=== PATIENT | female | born 1935 | race Caucasian/White ===

== ENCOUNTER 2018-10-18 21:38 | Inpatient (IN) | payer OTHER, MEDICARE ==
--- NOTE | 2018-10-18 21:43 | PDOC ---
History of Present Illness - General History Source: Patient Exam Limitations: No Limitations - History of Present Illness Initial Comments: 10/18/18 22:00 The patient is a 83 year old female, with a no significant PMH, who presents to the emergency department with back pain that began a few hours ago. The patient describes the pain as excruciating, constant and non radiating located to the upper back. She notes pain is exacerbated with movement and alleviated with rest. Per patient's daughter, patient took 3 Advils and 1 charcoal pill prior to arrival, mild relief. The patient denies chest pain, shortness of breath, headache and dizziness. Denies fever, chills, nausea, vomit, diarrhea and constipation. PAST MEDICAL HISTORY: no significant history PAST SURGICAL HISTORY: no significant history FAMILY HISTORY: no pertinent history SOCIAL HISTORY: Pt lives with family and is employed. MEDICATIONS: reviewed ALLERGIES: As per nursing notes Adult ROS General: No fevers or chills, no weakness, no weight loss HEENT: No change in vision. No sore throat,. No ear pain CardioVascular: No chest pain or shortness of breath Respiratory:No cough, or wheezing. Gastrointestinal: no nausea, vomiting, diarrhea or constipation, No rectal bleeding Genitourinary: No dysuria, hematuria, or frequency Musculoskeletal:+ Upper back pain. Neurologic: No headache, vertigo, dizziness or loss of consciousness Psychiatric: nor depression Skin: No rashes or easy bruising Endocrine: no increased thirst or abnormal weight change Allergic: no skin or latex allergy All other systems reviewed and normal Adult Exam: General: +Mild distress. Well-nourished well-developed individual. HEENT: Throat: Normal, tonsils normal, no erythema or exudate Neck: Supple, no meningeal signs, no lymphadenopathy Eyes::Pupils equal reactive and round, extraocular motion intact Chest: Nontender to palpation Cardiac: +Irregularly irregular rate and rhythm. Respiratory: Lungs clear to auscultation bilateral Abdomen: +Slightly distended soft, normal bowel sounds, nontender to palpation diffusely Extremities: Warm, dry, no cyanosis, clubbing, or edema Skin: No rashes Neuro: Alert and oriented x3, nonfocal exam, grossly intact, normal gait Psych: Normal mood and affect <Krista Lyn - Last Filed: 10/18/18 22:00> - General History Source: Patient Exam Limitations: No Limitations - History of Present Illness Initial Comments: A portion of this note was documented by scribe services under my direction. I have reviewed the details of the note, within reason, and agree with the documentation with the following case summary and management plan written by me. Patient treated in the ED. Nursing notes are reviewed and incorporated into the medical decision-making. Vital signs reviewed. Assessment and plan: This is a 83-year-old female who comes in with her daughter for evaluation of back pain primarily but also an epigastric chest pain component to it. Patient does admit to some shortness of breath and diaphoresis with it. Patient took Tums, charcoal pill and 3 Aleve and said pain is now better than it was earlier. Patient does have history of similar in the past without was relieved with antacids. Here in the emergency room patient was noted to have a irregular heartbeat and EKG showed atrial fibrillation at a rate of [address]-T wave changes. Patient's chest x-ray shows a questionable widened mediastinum versus perihilar infiltrate. Patient does have a 13.6 white count with a left shift, without a source however I have not also gotten a urine from her as she says she is not able to give one Patient's glucose is moderately elevated at 176 patient denies history of diabetes or prediabetes said had work blood work a couple weeks ago and everything was fine. Patient had a CT angio of the chest to rule out aortic dissection given her degree of back pain. Likewise wavered IS about 10 minutes and are supple give her 10 more minutes 10/19/18 01:19 CT angios of the chest was negative for any acute pathology. Patient will be admitted to a observation bed hospitalist service, <Tab Browne I - Last Filed: 10/19/18 01:22> - General Chief Complaint: Back Pain Stated Complaint: UPPER BACK PAIN Time Seen by Provider: 10/18/18 21:43 Past History <Krista Lyn - Last Filed: 10/18/18 22:00> - Suicide/Smoking/Psychosocial Hx Smoking History: Former smoker Have you smoked in the past 12 months: No <Tab Browne I - Last Filed: 10/19/18 01:22> - Past Medical History Allergies/Adverse Reactions: Allergies Allergy/AdvReac Type Severity Reaction Status Date / Time aspirin [From Percodan] Allergy Verified 10/18/18 21:46 oxycodone HCl [From Percodan] Allergy Verified 10/18/18 21:46 oxycodone terephthalate Allergy Verified 10/18/18 21:46 [From Percodan] Home Medications: Ambulatory Orders Charcoal 600 mg PO ONCE 10/18/18 Ibuprofen [Advil -] 600 mg PO ONCE 10/18/18 *Physical Exam - Vital Signs Last Vital Signs Temp Pulse Resp BP Pulse Ox 97.3 F L 60 18 155/100 99 10/18/18 21:40 10/18/18 21:40 10/18/18 21:40 10/18/18 21:40 10/18/18 21:40 <Krista Lyn - Last Filed: 10/18/18 22:00> Moderate Sedation - Procedure Monitoring Vital Signs: Procedure Monitoring Vital Signs Temperature 97.3 F L 10/18/18 21:40 Pulse Rate 60 10/18/18 21:40 Respiratory Rate 18 10/18/18 21:40 Blood Pressure 155/100 10/18/18 21:40 O2 Sat by Pulse Oximetry (%) 99 10/18/18 21:40 <Krista Lyn - Last Filed: 10/18/18 22:00> ED Treatment Course - LABORATORY CBC & Chemistry Diagram: 10/18/18 21:56 10/18/18 21:56 <Tab Browne I - Last Filed: 10/19/18 01:22> *DC/Admit/Observation/Transfer - Attestations Scribe Attestion: 10/18/18 22:01 Documentation prepared by Krista Lyn, acting as medical records coordinator for Tab Browne MD. <Krista Lyn - Last Filed: 10/18/18 22:00> - Discharge Dispostion Decision to Admit order: Yes <Tab Browne I - Last Filed: 10/19/18 01:22> Diagnosis at time of Disposition: New onset atrial fibrillation, Hyperglycemia, Chest pain Leukocytosis Qualifiers: Leukocytosis type: other Qualified Code(s): D72.828 - Other elevated white blood cell count - Discharge Dispostion Condition at time of disposition: Good - Referrals Referrals: Sheryl Perez MD [Primary Care Provider] - - Patient Instructions - Post Discharge Activity
[2018-10-18] MEDS ORDERED: FAMOTIDINE 20 MG/50 ML IVPB 20 MG/50 ML MG IVPB ONE ×2 (21:57→22:02)
[2018-10-18 21:58] VITALS: BMI 23.1
[2018-10-18 22:20] LABS: RDW 12.8 % (11.6-15.6)
[2018-10-18 22:25] LABS: BASO % 1.8 % (0-2.0); EOS % 1.4 % (0-4.5); HEMOGLOBIN 14.9 GM/dl (10.7-15.3); LYMPH % 8.6 % (8-40); MCH 29.1 pg (25.7-33.7); MEAN PLT VOLUME 9.1 fl (7.5-11.1); MONO % 3.4 % (3.8-10.2); NEUT % 84.8 % (42.8-82.8); PLATELET COUNT 351 K/MM3 (134-434); RBC 5.11 M/mm3 (3.60-5.2); WHITE BLOOD COUNT 16.3 K/mm3 (4.0-10.8)
[2018-10-18 22:31] LABS: ALBUMIN 3.8 g/dl (3.5-5.0); ALK PHOS 81 U/L (32-92); ANION GAP 12 MMOL/L (8-16); BILIRUBIN,TOTAL 0.6 mg/dl (0.2-1.0); BLOOD UREA NITROGEN 22 mg/dl (7-18); CALCIUM 9.8 mg/dl (8.4-10.2); CHLORIDE 102 mmol/L (98-107); CO2 26 mmol/L (22-28); CREATININE 1.1 mg/dl (0.6-1.3); GLUCOSE,RANDOM 176 mg/dl (74-106); POTASSIUM 4.1 mmol/L (3.5-5.1); SGOT/AST 25 U/L (10-42); SGPT/ALT 19 U/L (10-40); SODIUM 140 mmol/L (136-145); TOT PROT 6.6 g/dl (6.4-8.3)
[2018-10-18] MEDS ORDERED: SODIUM CHLORIDE 1,000 ML IV ONE (22:53)
[2018-10-19] MEDS ORDERED: dilTIAZem HCL 60 MG TABLET (FP) PO ONE ×2 (00:55→00:58)
[2018-10-19] MEDS ORDERED: dilTIAZem HCL 30 MG TABLET (FP) ONE (00:57)
[2018-10-19] MEDS ORDERED: KETOROLAC TROMETHAMINE 30 MG/1 ML VIAL ONE (01:40)
[2018-10-19] MEDS ORDERED: KETOROLAC TROMETHAMINE 30 MG/1 ML VIAL IVPUSH ONE (01:40)
[2018-10-19 02:23] LABS: URINE APPEARANCE CLEAR; URINE BILIRUBIN NEGATIVE (<2.0 mg/dL); URINE COLOR STRAW; URINE GLUCOSE (UA) NEGATIVE (NEGATIVE); URINE KETONE NEGATIVE (NEGATIVE); URINE LEUK ESTERASE NEGATIVE (NEGATIVE); URINE NITRITE NEGATIVE (NEGATIVE); URINE PROTEIN NEGATIVE (NEGATIVE); URINE UROBILINOGEN NEGATIVE mg/dL (0.2-1.0)
[2018-10-19] MEDS ORDERED: morphine CARPU-JECT 2 MG/1 ML DISP.SYRIN IVPUSH ONE (03:15)
[2018-10-19] MEDS: INSULIN SLIDING SCALE (NOVOLOG) 1 VIAL SQ SCH ×3 (06:35→16:40)
--- NOTE | 2018-10-19 08:30 | CON.CARD ---
Consult Consult Specialty:: Cardiology Reason for Consultation:: chest pain - History of Present Illness History of Present Illness: The patient is a 83 year old female, PMH, AF who presents to the emergency department with back pain that began a few hours ago. The patient describes the pain as excruciating, constant and non radiating located to the upper back. She notes pain is exacerbated with movement and alleviated with rest. Per patient's daughter, patient took 3 Advils and 1 charcoal pill prior to arrival, mild relief. - History Source History Provided By: Patient, Medical Record - Past Medical History Cardio/Vascular: Yes: AFIB - Alcohol/Substance Use Hx Alcohol Use: Yes (1 GLASS OF WINE TODAY) - Smoking History Smoking history: Former smoker Have you smoked in the past 12 months: No Home Medications - Allergies Allergies/Adverse Reactions: Allergies Allergy/AdvReac Type Severity Reaction Status Date / Time aspirin [From Percodan] Allergy Verified 10/18/18 21:46 oxycodone HCl [From Percodan] Allergy Verified 10/18/18 21:46 oxycodone terephthalate Allergy Verified 10/18/18 21:46 [From Percodan] - Home Medications Home Medications: Ambulatory Orders Charcoal 600 mg PO ONCE 10/18/18 Ibuprofen [Advil -] 600 mg PO ONCE 10/18/18 Review of Systems - Review of Systems Constitutional: reports: No Symptoms Eyes: reports: No Symptoms HENT: reports: No Symptoms Neck: reports: No Symptoms Cardiovascular: reports: Chest Pain Gastrointestinal: reports: No Symptoms Genitourinary: reports: No Symptoms Breasts: reports: No Symptoms Reported Musculoskeletal: reports: No Symptoms Integumentary: reports: No Symptoms Neurological: reports: No Symptoms Endocrine: reports: No Symptoms Hematology/Lymphatic: reports: No Symptoms Psychiatric: reports: No Symptoms Vital Signs: Vital Signs Temperature 98.7 F 10/19/18 06:01 Pulse Rate 104 H 10/19/18 06:01 Respiratory Rate 16 10/19/18 06:01 Blood Pressure 113/41 L 10/19/18 06:01 O2 Sat by Pulse Oximetry (%) 98 10/19/18 02:20 Constitutional: Yes: Well Nourished, No Distress, Calm Eyes: Yes: WNL, Conjunctiva Clear, EOM Intact HENT: Yes: WNL, Atraumatic, Normocephalic Neck: Yes: WNL, Supple, Trachea Midline Respiratory: Yes: WNL, Regular, CTA Bilaterally Gastrointestinal: Yes: WNL, Normal Bowel Sounds Renal/: Yes: WNL Cardiovascular: Yes: WNL, Regular Rate and Rhythm Musculoskeletal: Yes: WNL Extremities: Yes: WNL Integumentary: Yes: WNL Neurological: Yes: WNL, Alert, Oriented ...Motor Strength: WNL Psychiatric: Yes: WNL, Alert, Oriented - Other Data Labs, Other Data: Troponin, BNP 10/18/18 21:56 Troponin I < 0.03 Troponin, BNP 10/18/18 21:56 Troponin I < 0.03 Laboratory Tests 10/18/18 10/18/18 10/18/18 21:56 21:56 21:56 WBC 16.3 H RBC 5.11 Hgb 14.9 Hct 45.0 MCV 88.0 MCH 29.1 MCHC 33.0 RDW 12.8 Plt Count 351 MPV 9.1 Absolute Neuts (auto) 13.8 Neutrophils % 84.8 H Lymphocytes % 8.6 Monocytes % 3.4 L Eosinophils % 1.4 Basophils % 1.8 Sodium 140 Potassium 4.1 Chloride 102 Carbon Dioxide 26 Anion Gap 12 BUN 22 H Creatinine 1.1 Creat Clearance w eGFR 47.32 POC Glucometer Random Glucose 176 H Hemoglobin A1c % Calcium 9.8 Magnesium Total Bilirubin 0.6 AST 25 ALT 19 Alkaline Phosphatase 81 Creatine Kinase Troponin I < 0.03 Total Protein 6.6 Albumin 3.8 Triglycerides Cholesterol Total LDL Cholesterol HDL Cholesterol TSH Urine Color Urine Appearance Urine pH Ur Specific [place] Urine Protein Urine Glucose (UA) Urine Ketones Urine Blood Urine Nitrite Urine Bilirubin Urine Urobilinogen Ur Leukocyte Esterase 10/18/18 10/19/18 10/19/18 21:56 00:05 06:34 WBC RBC Hgb Hct MCV MCH MCHC RDW Plt Count MPV Absolute Neuts (auto) Neutrophils % Lymphocytes % Monocytes % Eosinophils % Basophils % Sodium Potassium Chloride Carbon Dioxide Anion Gap BUN Creatinine Creat Clearance w eGFR POC Glucometer 143 Random Glucose Hemoglobin A1c % Calcium Magnesium Total Bilirubin AST ALT Alkaline Phosphatase Creatine Kinase 63 Troponin I Total Protein Albumin Triglycerides Cholesterol Total LDL Cholesterol HDL Cholesterol TSH Urine Color Straw Urine Appearance Clear Urine pH 5.0 Ur Specific [place] 1.025 Urine Protein Negative Urine Glucose (UA) Negative Urine Ketones Negative Urine Blood Negative Urine Nitrite Negative Urine Bilirubin Negative Urine Urobilinogen Negative Ur Leukocyte Esterase Negative 10/19/18 10/19/18 10/19/18 08:23 08:23 08:23 WBC 12.7 H RBC 4.91 Hgb 14.3 Hct 43.1 MCV 87.6 MCH 29.1 MCHC 33.2 RDW 12.6 Plt Count 309 MPV 9.1 Absolute Neuts (auto) 11.1 Neutrophils % 87.1 H Lymphocytes % 5.8 L Monocytes % 6.7 Eosinophils % 0.2 Basophils % 0.2 Sodium 133 L Potassium 4.4 Chloride 104 Carbon Dioxide 22 Anion Gap 7 L BUN 21 H Creatinine 1.0 Creat Clearance w eGFR 52.82 POC Glucometer Random Glucose 168 H Hemoglobin A1c % 5.6 Calcium 9.6 Magnesium 1.7 L Total Bilirubin AST ALT Alkaline Phosphatase Creatine Kinase Troponin I 0.02 Total Protein Albumin Triglycerides 69 Cholesterol 156 Total LDL Cholesterol 80 HDL Cholesterol 63 TSH Urine Color Urine Appearance Urine pH Ur Specific [place] Urine Protein Urine Glucose (UA) Urine Ketones Urine Blood Urine Nitrite Urine Bilirubin Urine Urobilinogen Ur Leukocyte Esterase 10/19/18 10/19/18 08:23 11:51 WBC RBC Hgb Hct MCV MCH MCHC RDW Plt Count MPV Absolute Neuts (auto) Neutrophils % Lymphocytes % Monocytes % Eosinophils % Basophils % Sodium Potassium Chloride Carbon Dioxide Anion Gap BUN Creatinine Creat Clearance w eGFR POC Glucometer 150 Random Glucose Hemoglobin A1c % Calcium Magnesium Total Bilirubin AST ALT Alkaline Phosphatase Creatine Kinase Troponin I Total Protein Albumin Triglycerides Cholesterol Total LDL Cholesterol HDL Cholesterol TSH 2.36 Urine Color Urine Appearance Urine pH Ur Specific [place] Urine Protein Urine Glucose (UA) Urine Ketones Urine Blood Urine Nitrite Urine Bilirubin Urine Urobilinogen Ur Leukocyte Esterase Imaging - Results Chest X-ray: Image Reviewed (cm no i/e) EKG: Image Reviewed (sr apcs rep abn) Problem List - Problems (1) Chest pain Code(s): R07.9 - CHEST PAIN, UNSPECIFIED (2) Hyperglycemia Code(s): R73.9 - HYPERGLYCEMIA, UNSPECIFIED (3) Leukocytosis Code(s): D72.829 - ELEVATED WHITE BLOOD CELL COUNT, UNSPECIFIED Qualifiers: Leukocytosis type: other Qualified Code(s): D72.828 - Other elevated white blood cell count (4) New onset atrial fibrillation Code(s): I48.91 - UNSPECIFIED ATRIAL FIBRILLATION (5) Distal radius fracture, right Code(s): S52.501A - UNSP FRACTURE OF THE LOWER END OF RIGHT RADIUS, INIT (6) Fracture of right ulnar styloid Code(s): S52.611A - DISP FX OF RIGHT ULNA STYLOID PROCESS, INIT FOR CLOS FX Assessment/Plan atypical cp back pain no dissection on CTA 1.2 cm pericardial effusion AF Plan; Telemetry echo cont AC obtain old records regarding dx of AF
[2018-10-19 09:22] LABS: ANION GAP 7 MMOL/L (8-16); BLOOD UREA NITROGEN 21 mg/dl (7-18); CALCIUM 9.6 mg/dl (8.4-10.2); CHLORIDE 104 mmol/L (98-107); CHOLESTEROL 156 mg/dl; CO2 22 mmol/L (22-28); GLUCOSE,RANDOM 168 mg/dl (74-106); HDL CHOLESTEROL 63 mg/dl (29-89); MAGNESIUM 1.7 mg/dL (1.8-2.4); POTASSIUM 4.4 mmol/L (3.5-5.1); SODIUM 133 mmol/L (136-145); TRIGLYCERIDES 69 mg/dl (35-160)
[2018-10-19 09:23] LABS: BASO % 0.2 % (0-2.0); EOS % 0.2 % (0-4.5); HEMATOCRIT 43.1 % (32.4-45.2); HEMOGLOBIN 14.3 GM/dl (10.7-15.3); LYMPH % 5.8 % (8-40); MCH 29.1 pg (25.7-33.7); MCHC 33.2 g/dl (32.0-36.0); MEAN CELL VOLUME 87.6 fl (80-96); MEAN PLT VOLUME 9.1 fl (7.5-11.1); MONO % 6.7 % (3.8-10.2); NEUT % 87.1 % (42.8-82.8); PLATELET COUNT 309 K/MM3 (134-434); RBC 4.91 M/mm3 (3.60-5.2); RDW 12.6 % (11.6-15.6); WHITE BLOOD COUNT 12.7 K/mm3 (4.0-10.8)
[2018-10-19] MEDS: metoPROLOL SUCCINATE 25 MG TAB.SR.24H (FP) PO SCH (09:47)
[2018-10-19] MEDS ORDERED: HEPARIN NA (PORCINE) 5,000 UNITS/ML 1ML VIAL SQ SCH (10:00)
--- NOTE | 2018-10-19 10:14 | HP ---
CHIEF COMPLAINT: PCP: HISTORY OF PRESENT ILLNESS: 83 year-old female with no significant PMH who presented to the emergency department with back pain that began several hours before. The patient described the pain as excruciating, constant,non radiating, and located to the upper back. She noted pain was exacerbated with movement and alleviated with rest. Per patient's daughter, patient took 3 Advils and 1 charcoal pill prior to arrival which provided mild relief. Patient reports a history of problems with gas which results in shoulder pain. The patient denied chest pain, shortness of breath, headache and dizziness. Denied fever, chills, nausea, vomit , diarrhea and constipation. ER course was notable for: (1) BP 155/100, p 108 (2) Troponin neg x 2 (3) ECG: afib @ 83 Recent Travel: No PAST MEDICAL HISTORY: None - verified with PCP Dr. Radha Perez PAST SURGICAL HISTORY: None reported Social History: Smoking: quit 30 years ago Alcohol: no Drugs: no Family History: Allergies aspirin [From Percodan] Allergy (Verified 10/18/18 21:46) oxycodone HCl [From Percodan] Allergy (Verified 10/18/18 21:46) oxycodone terephthalate [From Percodan] Allergy (Verified 10/18/18 21:46) HOME MEDICATIONS: Home Medications Medication Instructions Recorded Charcoal 600 mg PO ONCE 10/18/18 Ibuprofen [Advil -] 600 mg PO ONCE 10/18/18 REVIEW OF SYSTEMS CONSTITUTIONAL: Absent: fever, chills, diaphoresis, generalized weakness, malaise, loss of appetite, weight change HEENT: Absent: rhinorrhea, nasal congestion, throat pain, throat swelling, difficulty swallowing, mouth swelling, ear pain, eye pain, visual changes CARDIOVASCULAR: Absent: chest pain, syncope, palpitations, irregular heart rate, lightheadedness , peripheral edema RESPIRATORY: Absent: cough, shortness of breath, dyspnea with exertion, orthopnea, wheezing, stridor, hemoptysis GASTROINTESTINAL: Absent: abdominal pain, abdominal distension, nausea, vomiting, diarrhea, constipation, melena, hematochezia GENITOURINARY: Absent: dysuria, frequency, urgency, hesitancy, hematuria, flank pain, genital pain MUSCULOSKELETAL: +back/shoulder pain Absent: myalgia, arthralgia, joint swelling, back pain, neck pain SKIN: Absent: rash, itching, pallor HEMATOLOGIC/IMMUNOLOGIC: Absent: easy bleeding, easy bruising, lymphadenopathy, frequent infections ENDOCRINE: Absent: unexplained weight gain, unexplained weight loss, heat intolerance, cold intolerance NEUROLOGIC: Absent: headache, focal weakness or paresthesias, dizziness, unsteady gait, seizure, mental status changes, bladder or bowel incontinence PSYCHIATRIC: Absent: anxiety, depression, suicidal or homicidal ideation, hallucinations. PHYSICAL EXAMINATION Vital Signs - 24 hr 10/18/18 10/18/18 10/19/18 21:40 22:01 00:39 Temperature 97.3 F L Pulse Rate 60 Pulse Rate [ 98 H 108 H Apical] Respiratory 18 20 18 Rate Blood Pressure 155/100 Blood Pressure 151/92 130/87 [Left Arm] O2 Sat by Pulse 99 98 98 Oximetry (%) GENERAL: Awake, alert, and fully oriented, in no acute distress. HEAD: Normal with no signs of trauma. EYES: Pupils equal, round and reactive to light, extraocular movements intact, sclera anicteric, conjunctiva clear. No lid lag. EARS, NOSE, THROAT: Ears normal, nares patent, oropharynx clear without exudates. Moist mucous membranes. NECK: Normal range of motion, supple without lymphadenopathy, JVD, or masses. LUNGS: Breath sounds equal, clear to auscultation bilaterally. No wheezes, and no crackles. No accessory muscle use. HEART: Irregular, S1 and S2 ABDOMEN: Soft, nontender, not distended MUSCULOSKELETAL: Normal range of motion both shoulders; no bony deformities or tenderness. No CVA tenderness. UPPER EXTREMITIES: 2+ pulses, warm, well-perfused. No cyanosis. No clubbing. No peripheral edema. LOWER EXTREMITIES: 2+ pulses, warm, well-perfused. No calf tenderness. No peripheral edema. NEUROLOGICAL: Cranial nerves II-XII intact. Normal speech. Laboratory Results - last 24 hr 10/18/18 10/18/18 10/18/18 21:56 21:56 21:56 WBC 16.3 H RBC 5.11 Hgb 14.9 Hct 45.0 MCV 88.0 MCH 29.1 MCHC 33.0 RDW 12.8 Plt Count 351 MPV 9.1 Absolute Neuts (auto) 13.8 Neutrophils % 84.8 H Lymphocytes % 8.6 Monocytes % 3.4 L Eosinophils % 1.4 Basophils % 1.8 Sodium 140 Potassium 4.1 Chloride 102 Carbon Dioxide 26 Anion Gap 12 BUN 22 H Creatinine 1.1 Creat Clearance w eGFR 47.32 POC Glucometer Random Glucose 176 H Hemoglobin A1c % Calcium 9.8 Magnesium Total Bilirubin 0.6 AST 25 ALT 19 Alkaline Phosphatase 81 Creatine Kinase Troponin I < 0.03 Total Protein 6.6 Albumin 3.8 Triglycerides Cholesterol Total LDL Cholesterol HDL Cholesterol TSH Urine Color Urine Appearance Urine pH Ur Specific [place] Urine Protein Urine Glucose (UA) Urine Ketones Urine Blood Urine Nitrite Urine Bilirubin Urine Urobilinogen Ur Leukocyte Esterase 10/18/18 10/19/18 10/19/18 21:56 00:05 06:34 WBC RBC Hgb Hct MCV MCH MCHC RDW Plt Count MPV Absolute Neuts (auto) Neutrophils % Lymphocytes % Monocytes % Eosinophils % Basophils % Sodium Potassium Chloride Carbon Dioxide Anion Gap BUN Creatinine Creat Clearance w eGFR POC Glucometer 143 Random Glucose Hemoglobin A1c % Calcium Magnesium Total Bilirubin AST ALT Alkaline Phosphatase Creatine Kinase 63 Troponin I Total Protein Albumin Triglycerides Cholesterol Total LDL Cholesterol HDL Cholesterol TSH Urine Color Straw Urine Appearance Clear Urine pH 5.0 Ur Specific [place] 1.025 Urine Protein Negative Urine Glucose (UA) Negative Urine Ketones Negative Urine Blood Negative Urine Nitrite Negative Urine Bilirubin Negative Urine Urobilinogen Negative Ur Leukocyte Esterase Negative 10/19/18 10/19/18 10/19/18 08:23 08:23 08:23 WBC 12.7 H RBC 4.91 Hgb 14.3 Hct 43.1 MCV 87.6 MCH 29.1 MCHC 33.2 RDW 12.6 Plt Count 309 MPV 9.1 Absolute Neuts (auto) 11.1 Neutrophils % 87.1 H Lymphocytes % 5.8 L Monocytes % 6.7 Eosinophils % 0.2 Basophils % 0.2 Sodium 133 L Potassium 4.4 Chloride 104 Carbon Dioxide 22 Anion Gap 7 L BUN 21 H Creatinine 1.0 Creat Clearance w eGFR 52.82 POC Glucometer Random Glucose 168 H Hemoglobin A1c % 5.6 Calcium 9.6 Magnesium 1.7 L Total Bilirubin AST ALT Alkaline Phosphatase Creatine Kinase Troponin I 0.02 Total Protein Albumin Triglycerides 69 Cholesterol 156 Total LDL Cholesterol 80 HDL Cholesterol 63 TSH Urine Color Urine Appearance Urine pH Ur Specific [place] Urine Protein Urine Glucose (UA) Urine Ketones Urine Blood Urine Nitrite Urine Bilirubin Urine Urobilinogen Ur Leukocyte Esterase 10/19/18 08:23 WBC RBC Hgb Hct MCV MCH MCHC RDW Plt Count MPV Absolute Neuts (auto) Neutrophils % Lymphocytes % Monocytes % Eosinophils % Basophils % Sodium Potassium Chloride Carbon Dioxide Anion Gap BUN Creatinine Creat Clearance w eGFR POC Glucometer Random Glucose Hemoglobin A1c % Calcium Magnesium Total Bilirubin AST ALT Alkaline Phosphatase Creatine Kinase Troponin I Total Protein Albumin Triglycerides Cholesterol Total LDL Cholesterol HDL Cholesterol TSH 2.36 Urine Color Urine Appearance Urine pH Ur Specific [place] Urine Protein Urine Glucose (UA) Urine Ketones Urine Blood Urine Nitrite Urine Bilirubin Urine Urobilinogen Ur Leukocyte Esterase ASSESSMENT/PLAN 83 year-old female with no significant PMH, admitted for shoulder and back pain and newly diagnosed atrial fibrillation. Newly diagnosed atrial fibrillation --ECG: afib @ 84bpm --CXR: enlarged heart --start ToprolXL 25mg daily --start Eliquis 5mg BID --telemetry monitoring --daily ECGs --cardiology consult Shoulder and back pain --CTA chest negative for gross PE, negative for dissection; no acute process --h/o gas pains radiating to shoulders, feels similar; will order simethicone --possibly musculoskeletal, consider ortho consult if persists r/o Pericardial effusion --CTA showed 1.2cm pericardial effusion characterized as small to moderate --will obtain echo FEN Fluids: PO intake adequate Electrolytes: replete as indicated Nutrition: regular diet DVT prophylaxis: on Eliquis Physical therapy Dispo: continues to require inpatient care. Full code. -- Visit type - Emergency Visit Emergency Visit: Yes ED Registration Date: 10/19/18 Care time: The patient presented to the Emergency Department on the above date and was hospitalized for further evaluation of their emergent condition. - New Patient This patient is new to me today: Yes Date on this admission: 10/20/18 - Critical Care Critical Care patient: No
--- NOTE | 2018-10-19 16:39 | ECHO ---
Name: STEPHANIE FERRELL Exam:Adult Echocardiogram Study Date: 10/19/2018 01:31 PM Age: 83 yrs Reason For Study: A-Fib Height: 67 in Weight: 148 lb BSA: 1.8 m2 MMode/2D Measurements & Calculations IVSd: 1.4 cm Ao root diam: 3.0 cm LVIDd: 3.6 cm LA dimension: 3.4 cm LVIDs: 2.2 cm LVPWd: 1.1 cm EDV(Teich): 53.4 ml ESV(Teich): 15.4 ml Doppler Measurements & Calculations MV E max yolanda: 85.5 cm/sec MV A max yolanda: 76.2 cm/sec MV dec slope: 433.3 cm/sec2 MV E/A: 1.1 TR max yolanda: 272.5 cm/sec PI end-d yolanda: 69.4 cm/sec TR max P.9 mmHg Procedure A complete two-dimensional transthoracic echocardiogram was performed (2D, M-mode, Doppler and color flow Doppler). Left Ventricle The left ventricle is normal in size. There is mild concentric left ventricular hypertrophy. Left oscar tricular systolic function is normal. Ejection Fraction = 65-70%. No regional wall motion abnormalities noted. Right Ventricle The right ventricle is normal size. The right ventricular systolic function is normal. Atria The left atrial size is normal. Right atrial size is normal. Mitral Valve The mitral valve is normal in structure and function. There is mild mitral regurgitation. Tricuspid Valve The tricuspid valve is normal in structure and function. There is moderate tricuspid regurgitation. P ulmonary artery systolic pressure is at least 40 mmHg assuming RA pressure of 3 mmHg (Normal IVC and >50% jamar apse). Aortic Valve There is mild aortic sclerosis.;. Mild aortic regurgitation. Pulmonic Valve The pulmonic valve is not well visualized. Mild pulmonic valvular regurgitation. Great Vessels The aortic root is normal size. Pericardium/Pleura Small pericardial effusion (<1cm). Interpretation Summary The left ventricle is normal in size. There is mild concentric left ventricular hypertrophy. Left ventricular systolic function is normal. No regional wall motion abnormalities noted. Ejection Fraction = 65-70%. The right ventricular systolic function is normal. The left atrial size is normal. Right atrial size is normal. There is mild mitral regurgitation. There is moderate tricuspid regurgitation. Pulmonary artery systolic pressure is at least 40 mmHg assuming RA pressure of 3 mmHg (Normal IVC and >50% collapse) There is mild aortic sclerosis. Mild aortic regurgitation. Mild pulmonic valvular regurgitation. Small pericardial effusion (<1cm) Previous study is not available for comparison Klaus Lin MD 10/19/2018 04:38 PM
[2018-10-19] MEDS: ACETAMINOPHEN 500 MG TABLET (FP) PO PRN (16:40)
--- NOTE | 2018-10-19 17:30 | CON.PULM ---
Consult Consult Specialty:: PULMONARY Referred by:: YISSEL Reason for Consultation:: BACK PAIN - History of Present Illness Chief Complaint: BACK PAIN History of Present Illness: The patient is a 83 year old female, with a no significant PMH, who presents to the emergency department with back pain that began a few hours ago. The patient describes the pain as excruciating, constant and non radiating located to the upper back. She notes pain is exacerbated with movement and alleviated with rest. Per patient's daughter, patient took 3 Advils and 1 charcoal pill prior to arrival, mild relief. The patient denies chest pain, shortness of breath, headache and dizziness. Denies fever, chills, nausea, vomit, diarrhea and constipation. 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: Alzheimer's Cardio/Vascular: Yes: AFIB Pulmonary: No: COPD Gastrointestinal: No: Ascites Hepatobiliary: No: Cirrhosis Renal/: No: Renal Failure Reproductive: Yes: Postmenopausal ...: No Heme/Onc: No: Anemia - Alcohol/Substance Use Hx Alcohol Use: Yes (1 GLASS OF WINE TODAY) - Smoking History Smoking history: Former smoker Have you smoked in the past 12 months: No - Social History Place of : [facility] History of Recent Travel: No Home Medications - Allergies Allergies/Adverse Reactions: Allergies Allergy/AdvReac Type Severity Reaction Status Date / Time aspirin [From Percodan] Allergy Verified 10/18/18 21:46 oxycodone HCl [From Percodan] Allergy Verified 10/18/18 21:46 oxycodone terephthalate Allergy Verified 10/18/18 21:46 [From Percodan] - Home Medications Home Medications: Ambulatory Orders Charcoal 600 mg PO ONCE 10/18/18 Ibuprofen [Advil -] 600 mg PO ONCE 10/18/18 Family Disease History - Family Disease History Family History: Unremarkable Review of Systems - Review of Systems Constitutional: denies: Fever Eyes: denies: Blurred Vision HENT: denies: Difficult Swallowing Neck: denies: Decreased ROM Cardiovascular: denies: Chest Pain, Shortness of Breath Respiratory: denies: Cough, Exercise Intolerance Gastrointestinal: denies: Abdominal Pain Genitourinary: denies: Burning Breasts: reports: No Symptoms Reported Musculoskeletal: reports: Back Pain Integumentary: reports: No Symptoms Neurological: reports: No Symptoms Endocrine: reports: No Symptoms Hematology/Lymphatic: reports: No Symptoms Physical Exam Vital Sings: Vital Signs Temperature 98.4 F 10/19/18 14:15 Pulse Rate 61 10/19/18 14:15 Respiratory Rate 18 10/19/18 14:15 Blood Pressure 120/49 L 10/19/18 14:15 O2 Sat by Pulse Oximetry (%) 95 10/19/18 14:15 Constitutional: Yes: Calm Eyes: Yes: EOM Intact HENT: Yes: Normocephalic Neck: Yes: Trachea Midline Cardiovascular: Yes: Pulse Irregular, S1, S2 Respiratory: Yes: Regular Gastrointestinal: Yes: Normal Bowel Sounds Musculoskeletal: Yes: Back Pain Extremities: Yes: WNL Edema: No Neurological: Yes: Alert Psychiatric: Yes: Alert Labs: CBC, BMP 10/19/18 08:23 10/19/18 08:23 REST REVIEWED Imaging - Results Chest X-ray: Report Reviewed, Image Reviewed Cat Scan: Report Reviewed, Image Reviewed EKG: Report Reviewed Other: Report Reviewed (ECHO) Problem List - Problems (1) Back pain Code(s): M54.9 - DORSALGIA, UNSPECIFIED (2) Hyperglycemia Code(s): R73.9 - HYPERGLYCEMIA, UNSPECIFIED (3) Leukocytosis Code(s): D72.829 - ELEVATED WHITE BLOOD CELL COUNT, UNSPECIFIED Qualifiers: Leukocytosis type: other Qualified Code(s): D72.828 - Other elevated white blood cell count (4) New onset atrial fibrillation Code(s): I48.91 - UNSPECIFIED ATRIAL FIBRILLATION Assessment/Plan LEFT MEDIAL SCAPULAR PAIN WITH DEEP INSPIRATION INTERMITTENT(LIKELY MUSCULOSKELETAL IN NATURE) PE HAS BEEN RULED OUT NEW ONSET AF NOW ON ELIQUIS/BETA-OPAL ELEVATED WBC WITH NO SIGN OF INFECTION PERICARDIAL EFFUSION/WITHOUT TAMPONADE CONTINUE ANTICOAGULATION/O2 IF NEEDED/CONSIDER BONE SCAN GIVEN AGE AND SEVERE ( 08/26) NATURE OF PAIN RESPIRATORY STATUS APPEARS STABLE Franklin CARRINGTON MD
[2018-10-19] MEDS: APIXABAN 5 MG TABLET PO SCH (21:17)
[2018-10-20 06:01] VITALS: BP 136/58; PULSE 64; TEMP 99.5
[2018-10-20] MEDS: INSULIN SLIDING SCALE (NOVOLOG) 1 VIAL SQ SCH ×2 (07:30→11:45)
--- NOTE | 2018-10-20 08:34 | DS ---
Physical Exam: SUBJECTIVE: Patient seen and examined at bedside. Daughters present. Complaining of left shoulder pain. OBJECTIVE: Vital Signs Period Temp Pulse Resp BP Sys/Reyes Pulse Ox Last 24 Hr 98.3 F-99.5 F 57-64 16-18 93-136/49-60 94-95 PHYSICAL EXAM GENERAL: The patient is awake, alert, and fully oriented, in mild distress secondary to left shoulder pain. LUNGS: Breath sounds equal, clear to auscultation bilaterally, no wheezes, no crackles, no accessory muscle use. HEART: Regular rate and rhythm, S1, S2 without murmur, rub or gallop. ABDOMEN: Soft, nontender, nondistended EXTREMITIES: 2+ pulses, warm, well-perfused, no edema. NEUROLOGICAL: Cranial nerves II through XII grossly intact. Normal speech, steady gait. LABS Laboratory Results - last 24 hr 10/19/18 10/19/18 10/19/18 08:23 08:23 08:23 WBC 12.7 H RBC 4.91 Hgb 14.3 Hct 43.1 MCV 87.6 MCH 29.1 MCHC 33.2 RDW 12.6 Plt Count 309 MPV 9.1 Absolute Neuts (auto) 11.1 Neutrophils % 87.1 H Lymphocytes % 5.8 L Monocytes % 6.7 Eosinophils % 0.2 Basophils % 0.2 Sodium 133 L Potassium 4.4 Chloride 104 Carbon Dioxide 22 Anion Gap 7 L BUN 21 H Creatinine 1.0 Creat Clearance w eGFR 52.82 POC Glucometer Random Glucose 168 H Hemoglobin A1c % 5.6 Calcium 9.6 Magnesium 1.7 L Troponin I 0.02 Triglycerides 69 Cholesterol 156 Total LDL Cholesterol 80 HDL Cholesterol 63 TSH 10/19/18 10/19/18 10/19/18 08:23 11:51 16:31 WBC RBC Hgb Hct MCV MCH MCHC RDW Plt Count MPV Absolute Neuts (auto) Neutrophils % Lymphocytes % Monocytes % Eosinophils % Basophils % Sodium Potassium Chloride Carbon Dioxide Anion Gap BUN Creatinine Creat Clearance w eGFR POC Glucometer 150 122 Random Glucose Hemoglobin A1c % Calcium Magnesium Troponin I Triglycerides Cholesterol Total LDL Cholesterol HDL Cholesterol TSH 2.36 HOSPITAL COURSE: Date of Admission:10/19/18 Date of Discharge: 10/20/18 Pre hospital course 83 year-old female with no significant PMH who presented to the emergency department with back pain that began several hours before. The patient described the pain as excruciating, constant,non radiating, and located to the upper back. She noted pain was exacerbated with movement and alleviated with rest. Per patient's daughter, patient took 3 Advils and 1 charcoal pill prior to arrival which provided mild relief. Patient reports a history of problems with gas which results in shoulder pain. The patient denied chest pain, shortness of breath, headache and dizziness. Denied fever, chills, nausea, vomit , diarrhea and constipation. ER course was notable for: (1) BP 155/100, p 108 (2) Troponin neg x 2 (3) ECG: afib @ 84 Subsequent hospital course 83 year-old female with no significant PMH, admitted for shoulder and back pain and newly diagnosed atrial fibrillation. Newly diagnosed atrial fibrillation --initial ECG afib @ 84bpm, later in day yesterday converted to sinus rhythm and remained in sinus rhythm on serial ECGs --10/19 Echo: mild concentric LVH; LV function normal, EF 65-70%, no RWMA; RV normal; mild MR --continued ToprolXL 25mg daily --continued Eliquis 5mg BID --telemetry monitoring --seen and evaluated by cardiology, patient will follow up with Dr. Valdivia as outpatient Shoulder and back pain --CTA chest negative for gross PE, negative for dissection; no acute process --h/o gas pains radiating to shoulders, feels similar; treated with simethicone --likely musculoskeletal --lidocaine patch --seen and evaluated by ortho; follow up with Dr. Dykes as outpatient r/o Pericardial effusion --CTA showed 1.2cm pericardial effusion characterized as small to moderate --Echo: small pericardial effusion <1cm --no further workup indicated Minutes to complete discharge: 35 Discharge Summary Reason For Visit: AFIB/HYPERGLYCEMIA/LEUKOCYTOSIS Current Active Problems Back pain (Acute) Chest pain (Acute) Hyperglycemia (Acute) Leukocytosis (Acute) New onset atrial fibrillation (Acute) Condition: Improved - Instructions Diet, Activity, Other Instructions: Four prescriptions have been sent to your pharmacy: 1. Eliquis 2. Toprol XL 3. Simethicone 4. Lidocaine patches Take these medications as directed. It is recommended you follow up within 72 hours with a fork assembler of your choosing. At the recommendation of Dr. Dykes, a prescription has been given to you for physical therapy for your shoulder. Return to the emergency department for any new or worsening symptoms. Referrals: Sheryl Perez MD [Primary Care Provider] - 1 Week Disposition: HOME - Home Medications Comprehensive Discharge Medication List: Ambulatory Orders Charcoal 600 mg PO ONCE 10/18/18 Ibuprofen [Advil -] 600 mg PO ONCE 10/18/18 This patient is new to me today: No Emergency Visit: Yes ED Registration Date: 10/19/18 Care time: The patient presented to the Emergency Department on the above date and was hospitalized for further evaluation of their emergent condition. Critical Care patient: No - Discharge Referral Referred to [facility] Med [facility].C[facility] No
[2018-10-20 08:36] LABS: BASO % 0.3 % (0-2.0); EOS % 0.9 % (0-4.5); HEMATOCRIT 39.4 % (32.4-45.2); HEMOGLOBIN 13.1 GM/dl (10.7-15.3); LYMPH % 11.5 % (8-40); MCH 29.4 pg (25.7-33.7); MCHC 33.3 g/dl (32.0-36.0); MEAN CELL VOLUME 88.1 fl (80-96); MEAN PLT VOLUME 9.1 fl (7.5-11.1); MONO % 8.7 % (3.8-10.2); NEUT % 78.6 % (42.8-82.8); PLATELET COUNT 273 K/MM3 (134-434); RBC 4.47 M/mm3 (3.60-5.2); RDW 12.8 % (11.6-15.6)
[2018-10-20 08:39] LABS: ALK PHOS 72 U/L (32-92); ANION GAP 5 MMOL/L (8-16); BILIRUBIN,TOTAL 1.7 mg/dl (0.2-1.0); BLOOD UREA NITROGEN 22 mg/dl (7-18); CALCIUM 8.9 mg/dl (8.4-10.2); CHLORIDE 103 mmol/L (98-107); CO2 25 mmol/L (22-28); CREATININE 1.1 mg/dl (0.6-1.3); GLUCOSE,RANDOM 111 mg/dl (74-106); MAGNESIUM 1.8 mg/dL (1.8-2.4); PHOSPHOROUS 3.2 mg/dl (2.5-4.6); POTASSIUM 4.5 mmol/L (3.5-5.1); SGOT/AST 23 U/L (10-42); SGPT/ALT 22 U/L (10-40); SODIUM 133 mmol/L (136-145); TOT PROT 5.5 g/dl (6.4-8.3)
[2018-10-20] MEDS: metoPROLOL SUCCINATE 25 MG TAB.SR.24H (FP) PO SCH (09:12)
[2018-10-20] MEDS: APIXABAN 5 MG TABLET PO SCH (09:12)
[2018-10-20] MEDS: ACETAMINOPHEN 500 MG TABLET (FP) PO PRN (09:13)
--- NOTE | 2018-10-20 10:55 | PN ---
Progress Note, Physician Chief Complaint: Pt A&Ox3; OOB in chair; c/o left shoulder pain that is tender in L scapular and shoulder areas, and painful if she lifts are; she atributes it to "gas". Her daughters are at bedside; her son was spoken to by phone. History of Present Illness: The patient is an 83 year old white female, with a no significant PMH, who presents to the emergency department with back pain that began a few hours ago. The patient describes the pain as excruciating, constant and non radiating located to the upper back. She notes pain is exacerbated with movement and alleviated with rest. Per patient's daughter, patient took 3 Advils and 1 charcoal pill prior to arrival, mild relief. She was found to be in AF, which is apparently of new onset. - Current Medication List Current Medications: Active Medications Acetaminophen (Tylenol -) 500 mg PO Q6H PRN PRN Reason: PAIN LEVEL 1-5 Last Admin: 10/20/18 09:13 Dose: 500 mg Apixaban (Eliquis -) 5 mg PO BID [facility] Last Admin: 10/20/18 09:12 Dose: 5 mg Insulin Aspart (Novolog Vial Sliding Scale -) 1 vial SQ ACHS [facility]; Protocol Last Admin: 10/20/18 07:30 Dose: Not Given Metoprolol Succinate (Toprol Xl -) 25 mg PO DAILY [facility] Last Admin: 10/20/18 09:12 Dose: 25 mg - Objective Vital Signs: Vital Signs Temperature 99.5 F 10/20/18 06:00 Pulse Rate 64 10/20/18 06:00 Respiratory Rate 18 10/20/18 09:25 Blood Pressure 136/58 L 10/20/18 06:00 O2 Sat by Pulse Oximetry (%) 94 L 10/20/18 06:00 Constitutional: Yes: Calm Eyes: Yes: WNL HENT: Yes: WNL Neck: Yes: WNL Cardiovascular: Yes: S1 (vaires in intensity), S2 Respiratory: Yes: WNL Gastrointestinal: Yes: Soft ...Rectal Exam: Yes: Deferred Genitourinary: No: Anuria Breast(s): Yes: WNL Musculoskeletal: Yes: WNL Extremities: Yes: WNL Edema: No Peripheral Pulses WNL: Yes Integumentary: Yes: WNL Neurological: Yes: WNL Psychiatric: Yes: WNL Labs: CBC, BMP 10/20/18 07:57 10/20/18 07:57 - ....Imaging EKG: Image Reviewed (AF) Problem List - Problems (1) Anxiety Assessment/Plan: Pt was taking Lexapro, but stopped due to "gas". F/u with PMD Code(s): F41.9 - ANXIETY DISORDER, UNSPECIFIED (2) Back pain Code(s): M54.9 - DORSALGIA, UNSPECIFIED (3) Leukocytosis Code(s): D72.829 - ELEVATED WHITE BLOOD CELL COUNT, UNSPECIFIED Qualifiers: Leukocytosis type: other Qualified Code(s): D72.828 - Other elevated white blood cell count (4) New onset atrial fibrillation Assessment/Plan: Continue metoprolol ER 25 mg daily. Continue apixaban5 mg bid (discussed with pharmacist to confirm dosing in this 83 yr old with reduced GFR and weight of 147 lbs). ECHO: normal LVEF; moderate TR; normal LA size; small pericardial effusion. F/u as outpatient with PMD (pt plans to f/u at our office for cardiology). Pt will also be seen by Dr. Yoandy Saucedo, EP at [facility]. Code(s): I48.91 - UNSPECIFIED ATRIAL FIBRILLATION
[2018-10-20 11:07] LABS: N-TERMINAL BNP 1861.6 pg/ml (5-450)
[2018-10-20] MEDS ORDERED: LIDOCAINE 5% TOPICAL PATCH TP ONE (11:11)
[2018-10-20] MEDS ORDERED: SIMETHICONE 80 MG TAB.CHEW (FP) PO PRN (11:25)
[2018-10-20] MEDS ORDERED: traMADol HCL 50 MG TABLET PO ONE (12:00)
--- NOTE | 2018-10-20 13:34 | CONSULT ---
Consult - text type - Consultation Consultation Note: FULL CONSULT DICTATED IMP: LEFT SIDED CERVICAL RADICULITIS PLAN: DC HOME ON ANALGESICS, CERVICAL PILLOW, PT. NO NSAIDS DUE TO ANTICOAGULATION FROM AFIB. F/U MY OFFICE X 1 WEEK
--- NOTE | 2018-10-20 17:03 | EKG ---
Test Reason : Blood Pressure : / mmHG Vent. Rate : 069 BPM Atrial Rate : 069 BPM P-R Int : 142 ms QRS Dur : 080 ms QT Int : 394 ms P-R-T Axes : 053 -01 025 degrees QTc Int : 422 ms NORMAL SINUS RHYTHM WITH SINUS ARRHYTHMIA NONSPECIFIC T WAVE ABNORMALITY ABNORMAL ECG Confirmed by MD PAIGE, BONG ([id number]) on 10/20/2018 5:03:13 PM Referred By: JASMIN Confirmed By:BONG GIBSON MD
--- NOTE | 2018-10-20 17:03 | EKG ---
Test Reason : Blood Pressure : / mmHG Vent. Rate : 084 BPM Atrial Rate : 326 BPM P-R Int : 000 ms QRS Dur : 072 ms QT Int : 378 ms P-R-T Axes : 000 006 010 degrees QTc Int : 446 ms ATRIAL FIBRILLATION ABNORMAL ECG NO PREVIOUS ECGS AVAILABLE Confirmed by MD PAIGE, BONG ([id number]) on 10/20/2018 5:03:30 PM Referred By: TASHI Confirmed By:BONG GIBSON MD
--- NOTE | 2018-10-20 17:03 | EKG ---
Test Reason : Blood Pressure : / mmHG Vent. Rate : 066 BPM Atrial Rate : 066 BPM P-R Int : 154 ms QRS Dur : 076 ms QT Int : 394 ms P-R-T Axes : 044 002 038 degrees QTc Int : 413 ms SINUS RHYTHM WITH PREMATURE ATRIAL COMPLEXES ANTERIOR INFARCT , AGE UNDETERMINED ABNORMAL ECG Confirmed by MD PAIGE, BONG (2012) on 10/20/2018 5:03:22 PM Referred By: GINGER CASTELLANOS Confirmed By:BONG GIBSON MD
[2018-10-20] MEDS ORDERED: LIDOCAINE PATCH REMOVAL MC ONE (22:00)
--- NOTE | 2018-10-21 12:25 | CONS ---
DATE OF CONSULTATION: 10/20/2018 ORTHOPEDIC CONSULTATION The patient is an 83-year-old female admitted to the hospital for new onset atrial fibrillation. For the past few days, she has been complaining of on and off excruciating pain in her left shoulder. She points to her posterior scapula as the location of her pain. She has had no radiating pain down her arms or legs, no bowel or bladder complaints, no fever or chills, no lightheadedness, dizziness or blurry vision. She has had no recent fall or trauma. PHYSICAL EXAMINATION: She has marked stiffness in lateral bending of the cervical spine. Rotation is basically intact. She is nontender in the midline. The paraspinal area is where she keeps her head thrust forward over her shoulders. Cranial nerves 2 through 12 are grossly intact. Spurling sign is negative. She has full range of motion of the shoulder, elbow, wrist and fingers pulses and reflexes, intact sensation throughout, negative impingement sign 90 degrees of forward flexion, . No swelling, ecchymosis or erythema. IMPRESSION: Symptoms on physical exam more consistent with cervical radiculitis. PLAN: The patient is being discharged today on Eliquis due to her atrial fibrillation. Therefore, she cannot be on an anti-inflammatories. I have encouraged her to take analgesics such as Tylenol, do warm soaks, use a cervical pillow. I gave her a prescription for outpatient physical therapy. She can follow up in my office in one week's time if no improvement. GARY WINTERS M.D. [id number]
== END 2018-10-20 13:33 | disposition home or self-care (01) | DRG 309 ==
LOC: FER 21:38 → FM/S 10-19 01:29 → OBSVTOIN 10-19 01:51
PROVIDERS: ADMIT Internal Medicine; ATTEND Nurse Practitioner Acute Care
DX: I48.91 Unspecified atrial fibrillation (principal); I31.3 Pericardial effusion (noninflammatory); R73.9 Hyperglycemia, unspecified; D72.829 Elevated white blood cell count, unspecified; R07.89 Other chest pain; M54.9 Dorsalgia, unspecified; M25.512 Pain in left shoulder; F41.9 Anxiety disorder, unspecified; M54.12 Radiculopathy, cervical region; I34.0 Nonrheumatic mitral (valve) insufficiency
CPT/HCPCS: 36415; 71045-TC-FY; 71275-TC; 74160-TC; 80048; 80053; 80061; 81003; 82550; 82962; 83036; 83721; 83735; 83880; 84100; 84443; 84484; 85025; 93005; 93306-TC; 97116-GP; 97161-GP; 99284-25; G0378; J1644; J7030